=== PATIENT | female | born 1945 | race Caucasian/White ===

== ENCOUNTER 2016-11-02 07:09 | Observation (INO) | payer OTHER ==
[2016-11-02] MEDS ORDERED: BUPIVACAINE 0.5% 30 ML SDV ONE (07:35)
[2016-11-02] MEDS ORDERED: BUPIVACAINE 0.25% 30 ML SDV ONE (07:35)
[2016-11-02] MEDS ORDERED: THROMBIN (RECOMBINANT) 20,000 UNIT SPRAY TP ONE (07:35)
[2016-11-02] MEDS ORDERED: GENTAMICIN SULFATE 80 MG/2 ML VIAL ONE (07:36)
[2016-11-02] MEDS ORDERED: BACITRACIN 50,000 UNITS/10 ML SYR IRR ONE (07:36)
[2016-11-02] MEDS ORDERED: METHYLENE BLUE 0.5% 50 MG/10 ML AMP ONE (07:36)
[2016-11-02] MEDS ORDERED: ceFAZolin 1 GM/5 ML SYR ONE (07:36)
[2016-11-02] MEDS ORDERED: LIDOCAINE 1% 5 ML SDV ONE ×2 (08:13→08:28)
[2016-11-02] MEDS ORDERED: LIDOCAINE 1% 5 ML SDV ID PRN (08:25)
[2016-11-02] MEDS ORDERED: LR 1,000 ML IV ONE (08:25)
[2016-11-02] MEDS ORDERED: ceFAZolin 2 GM/DEXTROSE 100 ML IV ONE (08:30)
[2016-11-02] MEDS ORDERED: fentaNYL 250 MCG/5 ML INJ ONE (10:05)
[2016-11-02] MEDS ORDERED: PROPOFOL/EMULSION 500 MG/50 ML BOTTLE IV ONE (10:05)
[2016-11-02] MEDS ORDERED: MIDAZOLAM 2 MG/2 ML VIAL ONE (10:10)
[2016-11-02] MEDS ORDERED: ROCURONIUM 100 MG/10 ML VIAL ONE (10:13)
[2016-11-02] MEDS ORDERED: LIDOCAINE 2% 5 ML SDV ONE (10:14)
--- NOTE | 2016-11-02 11:38 | NM ---
Nuclear Medicine Lymphoseek Lymphoscintigraphy at 1036 hour History: Left-sided breast cancer. Technique: Following informed consent, a total of 724 uCi of technetium 99m labeled Lymphoseek was in jected lower outer quadrant periareolar location left breast and between the lesion and the subareola r utilizing 2 injections. The patient tolerated the injections well. Subsequent imaging was performed in the nuclear medicine department. Impression: Successful Lymphoseek lymphoscintigraphy for left-sided breast cancer.
[2016-11-02] MEDS ORDERED: DEXAMETHASONE 4 MG/ML VIAL ONE (11:39)
[2016-11-02] MEDS ORDERED: ONDANSETRON 4 MG/2 ML VIAL ONE (11:40)
[2016-11-02] MEDS ORDERED: PHENYLEPHRINE HCL 100 MCG/ML SYR ONE (11:49)
[2016-11-02] MEDS ORDERED: fentaNYL 100 MCG/2 ML INJ ONE ×2 (12:00→14:05)
--- NOTE | 2016-11-02 12:04 | POSTOPPROG ---
Post Op Note Date of Operation: 11/02/16 Surgeon: Maryann Paniagua Data Processing Consultant: home chisholm Anesthesiologist: verito Anesthesia: GET(General Endotracheal) Pre-op Diagnosis: breast cancer Post-op Diagnosis: same Indication: 71yo F with h/o right breast cancer s/p maste, who now desires L mastectomy Procedure: L mastectomy with SLN biopsy Findings: SLN negative on frozen section Inf/Abcess present in the surg proc area at time of surgery?: No Depth: Superfical (Skin SQ) EBL: Minimal Complications: none Drains: Jose Rafael Xiong Specimen(s): l breast l SLN l additional axillary contents
[2016-11-02] MEDS ORDERED: ONDANSETRON 4 MG/2 ML VIAL IVP PRN (12:07)
[2016-11-02] MEDS ORDERED: HYDROmorphONE/DILAUDID 1 MG/ML SYR IVP PRN (12:07)
[2016-11-02] MEDS ORDERED: ACETAMINOPHEN 325 MG TAB PO PRN (12:07)
[2016-11-02] MEDS ORDERED: ONDANSETRON DISINTEGRATING 4 MG TAB PO PRN (12:07)
[2016-11-02] MEDS ORDERED: diphenhydrAMINE 25 MG CAP PO PRN (12:07)
[2016-11-02] MEDS ORDERED: GLYCOPYRROLATE 0.2 MG/1 ML VIAL ONE ×3 (13:03→13:04)
[2016-11-02] MEDS ORDERED: NEOSTIGMINE METHYLSULFATE 5 MG/5 ML SYR ONE (13:04)
--- NOTE | 2016-11-02 13:25 | POSTOPPROG ---
Post Op Note Date of Operation: 11/02/16 Surgeon: Esdras Martino Painting Worker: Volodymyr LARKIN Anesthesia: GET(General Endotracheal) Pre-op Diagnosis: Breast cancer, right mastectomy scar Post-op Diagnosis: Same Indication: Right breast mastectomy scar Procedure: Excision of right breast mastectomy scar and complex closure Findings: see detailed operative note Inf/Abcess present in the surg proc area at time of surgery?: No EBL: Minimal (20cc) Complications: none Drains: Jose Rafael Xiong Specimen(s): none
[2016-11-02] MEDS ORDERED: hydrALAZINE 20 MG/ML VIAL ONE (13:48)
--- NOTE | 2016-11-02 16:52 | GOP ---
[f rep st] OPERATIVE REPORT DATE OF OPERATION: 11/02/2016 SURGEON: Esdras Martino MD MACHINE ETCHER: Volodymyr Bertrand, certified registered nurse anesthetist. ANESTHESIA: General endotracheal. PREOPERATIVE DIAGNOSIS: 1. Right breast cancer. 2. Status post breast reconstruction with explant of steam plant control room operator. POSTOPERATIVE DIAGNOSIS: 1. Right breast cancer. 2. Status post breast reconstruction with explant of steam plant control room operator. PROCEDURE PERFORMED: Right mastectomy scar revision and complex closure. FINDINGS: Right breast mastectomy and reconstruction scar SPECIMENS: None. ESTIMATED BLOOD LOSS: 20 mL. INDICATIONS: Ms. Tillman is a very pleasant 71-year-old female. She was diagnosed with right breast cancer and underwent a mastectomy with sentinel lymph node biopsy and immediate tissue steam plant control room operator reconstruction. This was complicated by seroma, reoperation and loss of her tissue steam plant control room operator, which was explanted approximately April of 2016. After much decision with her and her , she decided to undergo completion mastectomy on the left side as well as not having reconstruction done bilaterally. However, she did have excess skin and subcutaneous tissue left from the right mastectomy and the explant of the steam plant control room operator in reconstruction. She, therefore presented today for excision of the excess skin and subcutaneous tissue and complex closure of the right mastectomy wound. DESCRIPTION OF PROCEDURE: Ms. Tillman was met in the preoperative area where the risks and benefits were discussed with her at length which include, but not limited to, infection, bleeding, hematoma, seroma, hypertrophic or cheloid scarring, mastectomy skin flap loss partial or total, paresthesias, poor contour and need for further revision surgeries. She was agreeable to this and therefore signed the operative consent. She was then brought into the operating room, and prior to going to sleep, a time-out was performed where all in the room agreed upon the site and the procedure to be performed. Bilateral SCDs were placed for DVT prophylaxis. No urinary catheter was placed due to the short length of the procedure, and she received 2 g of Ancef perioperatively prior to any incision being made. My colleague, Dr. Maryann Paniagua will be dictating the left mastectomy. We began with our part of the procedure by opening up the old mastectomy incision on the right side. The mastectomy skin flaps were then re-raised over the pectoralis major muscle, both superiorly and inferiorly as well as taking them medially and laterally to release this scarred in and redundant tissue. Good hemostasis was then obtained with electrocautery. An elliptical design was designed in order to bring the wound edges back together without any undue tension and excise the excess skin and subcutaneous tissue. This was then incised with a 10 blade sharply, and the wound edges were brought together with a skin staple.. Once we were pleased with this, we irrigated the wound with copious amounts of sterile saline, and again, hemostasis was confirmed with electrocautery. Complex closure was then performed, first with a 2-0 interrupted Vicryl of the deep subcutaneous tissue, a 3-0 Monocryl suture of the deep subdermal tissue, and then a running 4-0 V-Loc subcuticular was then performed. The edges were reapproximated with skin channing and prior to closure , a 15-Wolof round DOROTA drain was placed within the wound and sutured to the skin with 2-0 silk sutures. The wound was then dressed with bacitracin, Xeroform, fluffs and a surgical bra. The count was correct at the end of the case. There were no complications. The wound measured 21 cm in its entirety upon final closure. She was awoken and taken to PACU in good condition. IV FLUIDS: 1300 mL. COMPLICATIONS: None. /[id number]/MODL MTDD
[2016-11-02] MEDS: IBUPROFEN 800 MG TAB PO SCH ×2 (18:42→20:27)
[2016-11-02 19:31] VITALS: RESP 16
[2016-11-02] MEDS: GLUCOSAMINE SULF 500 MG CAP PO SCH ×2 (20:27→23:44)
[2016-11-02] MEDS: DICLOFENAC SODIUM 75 MG TAB PO SCH (20:28)
[2016-11-02] MEDS ORDERED: ATORVASTATIN CALCIUM 20 MG TAB PO SCH (21:00)
[2016-11-02] MEDS ORDERED: NON-FORMULARY NEW DRUG (Simvastatin [Zocor] 40 MG) PO SCH (21:00)
[2016-11-02] MEDS: HYDROCODONE/APAP 5/325 TAB PO PRN (21:52)
[2016-11-02 23:14] VITALS: TEMP 98.1
[2016-11-03] MEDS: HYDROCODONE/APAP 5/325 TAB PO PRN (02:03)
[2016-11-03] MEDS: IBUPROFEN 800 MG TAB PO SCH (04:49)
--- NOTE | 2016-11-03 07:04 | GOP ---
[f rep st] OPERATIVE REPORT DATE OF OPERATION: 11/02/2016 SURGEON: Maryann Paniagua MD SEASONAL CLERK: Carmelina Daley PA-C ANESTHESIA: General. ANESTHESIOLOGIST: Alejandro Brooks MD PREOPERATIVE DIAGNOSIS: History of right breast ductal carcinoma in situ, desires contralateral mastectomy. POSTOPERATIVE DIAGNOSIS: History of right breast ductal carcinoma in situ, desires contralateral mastectomy. PROCEDURE PERFORMED: Left simple mastectomy and left sentinel lymph node. FINDINGS: Deforest lymph node negative. INDICATIONS: The patient is a 71-year-old with a history of right breast ductal carcinoma in situ, status post mastectomy who originally had reconstruction; however, the implant failed and the implant was removed. She now desires left mastectomy with no reconstruction. DESCRIPTION OF PROCEDURE: The patient was brought into the operating room, placed supine on the table, and general anesthesia was administered. Her bilateral neck and chest were prepped and draped in the usual sterile fashion. I made an ellipse around the nipple areolar complex, including excess breast tissue so the flaps would come together nicely. I created superior and inferior skin flaps. My dissection occurred to the clavicle, sternum, inframammary fold, and mid axillary line. I removed the breast from the pectoralis including the fascia. This plane was a bit sticky. Hemostasis was achieved. Next, I used the gamma probe to identify the sentinel lymph node. The sentinel lymph node was located actually high under the pectoralis muscle. I identified it and submitted it to Pathology. It returned negative. Hemostasis was achieved. I closed the tissue with 3-0 Vicryl followed by 4-0 Monocryl. I did a fish tail closure in the lateral aspect in order to remove the excess tissue underneath the axilla. Dr. Martino was then able to complete his portion of the operation. /[id number]/MODL MTDD
[2016-11-03 07:32] VITALS: BP 135/70; PULSE 75; O2SAT 98
[2016-11-03] MEDS: GLUCOSAMINE SULF 500 MG CAP PO SCH (08:55)
[2016-11-03] MEDS: DICLOFENAC SODIUM 75 MG TAB PO SCH ×2 (08:56→08:57)
[2016-11-03] MEDS ORDERED: CHOLECALCIFEROL VIT D3 1,000 UNITS TAB PO SCH (09:00)
[2016-11-03] MEDS ORDERED: ENOXAPARIN 40 MG/0.4 ML SYR SC SCH (09:00)
[2016-11-03] MEDS ORDERED: ASPIRIN 81 MG CHEWABLE TAB PO SCH (09:00)
[2016-11-03] MEDS ORDERED: ASCORBIC ACID 500 MG TAB PO SCH (09:00)
--- NOTE | 2016-11-03 09:37 | SOAPPROG ---
SOAP Progress Note Assessment/Plan: Assessment: DOING WELL ON POSTOP DAY 1. VERY COMFORTABLE WITH MINIMAL USE OF PAIN MEDICINE. MODERATE DOROTA DRAINAGE Plan: HOME TODAY / FOLLOW-UP IN THE OFFICE NEXT WEEK WITH BOTH PLASTIC SURGERY AND OUR OFFICE 11/03/16 09:36 Objective: Vital Signs Temp Pulse Resp BP Pulse Ox 36.7 C 75 16 135/70 H 98 11/03/16 07:31 11/03/16 07:31 11/03/16 07:31 11/03/16 07:31 11/03/16 07:31 11/02/16 11/03/16 11/04/16 05:59 05:59 05:59 Intake Total 2950 Output Total 359 Balance 2591 ICD10 Worksheet Patient Problems: Problems Problem Status Diagnosed Deep venous thrombosis Acute
== END 2016-11-03 12:00 | disposition home or self-care (01) ==
LOC: F1N 07:09
PROVIDERS: ADMIT Surgery; ATTEND Surgery
DX: Z40.01 Encounter for prophylactic removal of breast (principal); D05.81 Other specified type of carcinoma in situ of right breast; Z85.828 Personal history of other malignant neoplasm of skin; Z86.718 Personal history of other venous thrombosis and embolism; E78.2 Mixed hyperlipidemia
CPT/HCPCS: 19303; 19380; 38500; 78195; A9520; G0378; J0360; J0690; J1100; J1170; J2250; J2370; J2405; J2704; J2710; J3010; Q9968; J1650

== ENCOUNTER 2016-11-04 08:19 | Emergency (ER) | payer OTHER ==
--- NOTE | 2016-11-04 09:56 | EDPHY ---
H & P Time Seen by Provider: 11/04/16 09:09 HPI/ROS: CHIEF COMPLAINT: Clogged Jose Rafael-Xiong drain HISTORY OF PRESENT ILLNESS: 71-year-old female who was recently had a revision to her right breast and mastectomy to her left breast presents with concerns about her clogged left Jose Rafael-Xiong drain. Surgery was just 2 days ago. She has been very little pain. She woke up this morning and noted very little output in her left Jose Rafael-Xiong drain. The right 1 has been draining normally. She noted a bit of swelling in her left axilla. She denies fevers or chills. Denies rash. ROS: Denies fevers, chills, chest pain, difficulty breathing, rash. Past Medical/Surgical History: Breast cancer with recent left mastectomy and revision to the right breast. Social History: , retired OR nurse Smoking Status: Never smoked Physical Exam: On examination the patient has sutured lacerations to the left and right chest wall. She has Jose Rafael-Xiong drain sutured into the left lateral chest wall. Minimally tender to palpate. There is no redness or warmth or purulent drainage from the wounds. Full range of motion of her upper extremities. Her chest is clear to auscultation in all adorno with no wheezing, rhonchi or rales. Heart regular rate rhythm without murmur. Strong radial pulse at the left wrist. Constitutional: Initial Vital Signs Temperature (C) 36.3 C 11/04/16 08:24 Heart Rate 68 11/04/16 08:24 Respiratory Rate 17 11/04/16 08:24 Blood Pressure 107/79 11/04/16 08:24 O2 Sat (%) 97 11/04/16 08:24 O2 Delivery Mode Room Air Allergies/Adverse Reactions: No Known Allergies Allergy (Verified 11/04/16 08:19) Home Medications: Medication Instructions Recorded Ascorbic Acid [Vitamin C 500 mg 500 mg PO DAILY 03/30/16 (*)] Diclofenac Sodium [Voltaren 75 MG 75 mg PO BIDMEAL 03/30/16 (*)] Herbals/Supplements -Info Only 1 tab PO AD 03/30/16 Multivitamins [Multivitamin (*)] 1 each PO DAILY 04/13/16 Acetaminophen [Tylenol 325mg (*)] 650 mg PO Q6 PRN #0 tab 11/03/16 Ascorbic Acid [Vitamin C 500 mg 500 mg PO DAILY #0 tab 11/03/16 (*)] Aspirin [Aspirin 81mg (*)] 81 mg PO DAILY #0 tab.chew 11/03/16 Atorvastatin Calcium [Lipitor 20 20 mg PO HS #0 tab 11/03/16 mg (*)] Cholecalciferol Vit D3 [Vitamin D3 2,000 units PO DAILY #0 tab 11/03/16 (*)] Glucosamine Sulfate [Glucosamine 2,000 mg PO TID #0 cap 11/03/16 Sulfate 500 MG (*)] Keflex 11/04/16 MDM/Departure - [facility] ED Course/Re-evaluation: The left Jose Rafael-Xiong drain had a clot that was milked out of the tube and into the Jose Rafael-Xiong drain and then the tube was flowing normally. The patient understands how to flush this and keep this patent. Her dressings were changed. I do not think she needs admission to the hospital. She is comfortable being discharged home. No signs of cellulitis. Patient has scheduled appointment with surgeon this week. - Depart Disposition: Home, Routine, Self-Care Clinical Impression: Clogged Jose Rafael-Xiong drain Condition: Good Instructions: Jose Rafael-Xiong Drain Care (ED) Additional Instructions: Keep scheduled appointment with Dr. Gaspar this week. Return to the emergency department if you develop any signs or symptoms of infection, if your drain becomes clogged again, or if you feel worse in any way. Referrals: Guera Case, BOTTOM LIQUOR ATTENDANT [Primary Care Provider] - As per Instructions
[2016-11-04 10:04] VITALS: BP 118/72; PULSE 69; RESP 18; TEMP 97.7; O2SAT 96
== END 2016-11-04 10:01 | disposition home or self-care (01) ==
DX: T81.89XA Other complications of procedures, not elsewhere classified, initial encounter (principal); Z79.82 Long term (current) use of aspirin; Z85.3 Personal history of malignant neoplasm of breast; Y82.8 Other medical devices associated with adverse incidents

== ENCOUNTER → 2018-01-08 | Outpatient (CLI) | payer OTHER | LOC: FIMAGING 09:57 | PROVIDERS: ATTEND Nurse Practitioner | DX: Z13.820 Encounter for screening for osteoporosis (principal); M85.89 Other specified disorders of bone density and structure, multiple sites; Z78.0 Asymptomatic menopausal state; Z85.3 Personal history of malignant neoplasm of breast ==

== ENCOUNTER 2018-03-03 12:16 | Day surgery (SDC) | payer OTHER ==
[2018-03-03] MEDS ORDERED: LR 1,000 ML IV ONE (12:35)
[2018-03-03] MEDS ORDERED: MIDAZOLAM 2 MG/2 ML VIAL IVP ONE (13:31)
[2018-03-03] MEDS ORDERED: PROMETHAZINE HCL 25 MG/ML INJ IVP PRN (13:33)
[2018-03-03] MEDS ORDERED: LR 500 ML IV PRN (13:33)
[2018-03-03] MEDS ORDERED: ONDANSETRON 4 MG/2 ML VIAL IVP PRN (13:33)
[2018-03-03] MEDS ORDERED: NALOXONE HCL 0.4 MG/ML INJ IVP PRN (13:33)
[2018-03-03] MEDS ORDERED: LABETALOL HCL 5 MG/ML 20 ML MDV IVP PRN (13:33)
[2018-03-03] MEDS ORDERED: fentaNYL 100 MCG/2 ML INJ IVP PRN (13:33)
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
[2018-03-03] MEDS ORDERED: INDOMETHACIN 50 MG SUPP PR PRN (13:35)
--- NOTE | 2018-03-03 13:35 | PDGENHP ---
History & Physical Chief Complaint: screening History of Present Illness: 72 year old female for screening Pertinent Past, Social, Family History: PMHx: obesity, HTN. FaMHx: NO CRC Relevant Physical Exam: HEENT: anicteric. CV: RRR +s1s2. Lungs: CTAB. Abd: soft, nt, +Bs Cardiorespiratory Assessment: ASA 3
[2018-03-03] MEDS ORDERED: PROPOFOL 200 MG/20 ML VIAL ONE ×2 (13:36→13:57)
[2018-03-03] MEDS ORDERED: NS 500 ML IV SCH (13:45)
[2018-03-03] MEDS ORDERED: LABETALOL HCL 5 MG/ML 20 ML MDV ONE (13:46)
--- NOTE | 2018-03-03 14:16 | POSTANESTH ---
Post Anesthetic Evaluation Cardiovascular Status: Normal, Stable Respiratory Status: Normal, Stable, Similar to Pre-op Cond. Level of Consciousness/Mental Status: Can Participate in Eval, Mildly Sleepy, Arousable Pain Control: Adequate, Prn Tx Ordered Nausea/Vomiting Control: Adequate, Prn Tx Ordered Complications Possibly Related to Anesthesia: None Noted
--- NOTE | 2018-03-03 14:22 | GIREPORT ---
[facility] - Endoscopy Department Patient Name: Janett Tillman Procedure Date: 03/03/2018 1:35 PM Patient Type: Outpatient Attending MD/ ER Physician: Obed Gracia MD Procedure: Colonoscopy Indications: Screening for colorectal malignant neoplasm Patient Profile: 72 year old female presents for screening colonoscopy. Providers: Obed Gracia MD Medicines: Monitored Anesthesia Care Complications: No immediate complications. Description of Procedure: After obtaining informed consent, the scope was passed under direct vis ion. Throughout the procedure, the patient's blood pressure, pulse, and oxyg en saturations were monitored continuously. The Colonoscope with irrigatio n channel was introduced through the anus and advanced to the cecum, identified by appendiceal orifice and ileocecal valve. The colonoscopy was performed without difficulty. The patient tolerated the procedure well. The quality of the bowel preparation was good. The ileocecal valve, appendi ceal orifice, and rectum were photographed. Findings: The perianal and digital rectal examinations were normal. Pertinent negatives include no palpable rectal lesions. The entire examined colon appeared normal. Estimated Blood Loss: Estimated blood loss: none. Post Op Diagnosis: - The entire examined colon is normal. - No specimens collected. Recommendation: - Discharge patient to home (with escort). - Resume previous diet. - Continue present medications. - Repeat colonoscopy in 10 years for screening purposes. - Thank you for allowing me to participate in the care of your patient. Attending Participation: I personally performed the entire procedure. Obed Gracia MD Obed Gracia MD 03/03/2018 2:22:17 PM This report has been signed electronicallyObed Gracia MD Number of Addenda: 0 Note Initiated On: 03/03/2018 1:35 PM Total Procedure Duration Time 0 hours 21 minutes 16 seconds [email or web address]
[2018-03-03 15:46] VITALS: BP 171/69
== END 2018-03-03 16:00 | disposition home or self-care (01) ==
LOC: FSGY 12:16
PROVIDERS: ATTEND Internal Medicine Gastroenterology
PROC: 0DJD8ZZ Inspection of Lower Intestinal Tract, Via Natural or Artificial Opening Endoscopic (ICD-10-PCS; principal; 2018-03-03 13:45)
DX: Z12.11 Encounter for screening for malignant neoplasm of colon (principal); I10 Essential (primary) hypertension; E66.9 Obesity, unspecified
CPT/HCPCS: J2704